=== PATIENT | female | born 1930 | race Two or more races ===

== ENCOUNTER → 2017-04-20 | Outpatient (CLI) | payer MEDICAID | END | disposition home or self-care (01) | LOC: RADMN 10:05 | PROVIDERS: ATTEND Family Medicine | DX: L97.529 Non-pressure chronic ulcer of other part of left foot with unspecified severity (principal); M76.62 Achilles tendinitis, left leg; M19.072 Primary osteoarthritis, left ankle and foot; E87.5 Hyperkalemia | CPT/HCPCS: 73700 ==